=== PATIENT | male | born 1960 | race Caucasian/White ===

== ENCOUNTER → 2017-06-03 | Outpatient (CLI) | payer MEDICARE ==
[~2017-06-03] MED LIST: AMLODIPINE BESY10 MG PO; APAP650 PO; ASPERCREME1 EACH TRANSDERM; ASPIRIN325 PO; ASPIRIN81 M2 PO; COLACE100 MG PO; CYMBALTA60 MG PO; DEXILANT60 MG PO; DOXYCYCLINE 10100 MG PO; DUONEB 2.5-0.5 M3 ML INH; ELIQUIS2.5 MG PO; ENOXAPARIN40 MG/0.1 SUBQ; HYDROCODONE-AP1 EAC6 PO; LOSARTAN-HCTZ1 EAC2 PO; LOSARTAN-HCTZ1 EACH; MELOXICAM7.5 MG; METAMUCIL PAC1 UDPKT PO; METAMUCIL1 EAC1 PO; MILK OF MA2400 MG/10 PO; MOBIC15 MG PO; NICOTINE TRANSD21 M1 TRANSDERM; NORCO 5-325 TA1 EAC1 PO; NORCO 5-325 TA1 EACH PO; OMEPRAZOLE 20 M20 M1 PO; OXYCODONE HCL 55 MG PO; PREDNISONE50 MG PO; VENTOLIN HFA 1818 GM INH; VICODIN ES 7.51 EACH; ZOFRAN4 MG PO
[2017-06-03 11:03] LABS: ABSOLUTE BASOPHILS 0.1 thou/uL (0.0-0.2); ABSOLUTE EOSINOPHILS 0.2 thou/uL (0.0-0.7); ABSOLUTE LYMPHOCYTES 1.6 thou/uL (0.8-5.3); ABSOLUTE MONOCYTES 0.5 thou/uL (0.0-1.2); ABSOLUTE NEUTROPHILS 4.3 thou/uL (1.6-8.1); BASOPHILS 1.5 %; EOSINOPHILS 2.7 %; HEMATOCRIT 46.2 % (42.0-52.0); HEMOGLOBIN 15.7 gm/dL (14.0-18.0); MCH 31.9 pg (26.0-34.0); MCV 93.9 fL (80.0-100.0); MONOCYTES 7.6 %; MPV 8.1 fl. (7.2-11.1); NUCLEATED RBCS 0 /100WBC; PLATELET COUNT* 270 thou/uL (150-400); POLYS 64.2 %; RBC 4.92 mil/uL (4.50-6.00); RDW-CV 13.5 % (10.5-14.5); WBC 6.7 thou/uL (4.0-11.0)
[2017-06-03 11:14] LABS: ALBUMIN 3.7 g/dL (3.4-5.0); ALKALINE PHOSPHATASE 90 U/L (46-116); ANION GAP 8 mmol/L (7-16); BUN 17 mg/dL (7-18); CALCIUM 8.9 mg/dL (8.5-10.1); CHLORIDE 102 mmol/L (98-107); CHOLESTEROL 127 mg/dL (<200); CO2 28 mmol/L (21-32); CREATININE 0.9 mg/dL (0.6-1.3); GLUCOSE 123 mg/dL (70-99); HDL CHOLESTEROL 40 mg/dL (>40); LDL CHOLESTEROL 62 mg/dL (<100); POTASSIUM 4.9 mmol/L (3.5-5.1); SGOT 41 U/L (15-37); SGPT 31 U/L (30-65); SODIUM 138 mmol/L (136-145); TC:HDL 3.2 Ratio (Not establshd); TOTAL BILIRUBIN 0.6 mg/dL (<0.1-1.0); TOTAL PROTEIN 7.5 g/dL (6.4-8.2); TRIGLYCERIDE 127 mg/dL (<150); VLDL 25 mg/dL (<40)
[2017-06-03 11:15] LABS: SERUM ASSESSMENT Clear
[2017-06-03 17:14] LABS: GLYCOHEMOGLOBIN (HGB A1C) 5.3 % (4.8-5.6)
--- NOTE | 2017-06-08 15:58 | EKG ---
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
== END ==
LOC: M.LAB 10:37
PROVIDERS: Nurse Practitioner Family
DX: Z01.818 Encounter for other preprocedural examination (principal); I10 Essential (primary) hypertension; J44.0 Chronic obstructive pulmonary disease with (acute) lower respiratory infection; M15.9 Polyosteoarthritis, unspecified; K21.9 Gastro-esophageal reflux disease without esophagitis; Z87.891 Personal history of nicotine dependence

== ENCOUNTER 2017-06-28 07:05 | Inpatient (IN) | payer MEDICARE ==
[2017-06-08 13:36] LABS: APTT 27.1 Seconds (25.0-31.3); PROTIME 9.9 Seconds (9.20-11.50)
[~2017-06-28] VITALS: Ht 175.3 cm; Wt 124.3 kg
[~2017-06-28 07:05] MED LIST changes: -ASPERCREME1 EACH TRANSDERM; -DUONEB 2.5-0.5 M3 ML INH; -ELIQUIS2.5 MG PO; -METAMUCIL1 EAC1 PO; -PREDNISONE50 MG PO
[2017-06-28 08:00] VITALS: BP 132/81
[2017-06-28 15:00] VITALS: BP 101/75
[2017-06-28 20:00] VITALS: BP 131/79
[2017-06-28 23:48] VITALS: BP 129/80
[2017-06-29 04:19] VITALS: BP 132/88
[2017-06-29 04:26] LABS: HEMATOCRIT 39.7 % (42.0-52.0); HEMOGLOBIN 13.6 gm/dL (14.0-18.0)
[2017-06-29 07:59] VITALS: BP 146/95
[2017-06-29 15:46] VITALS: BP 118/72
[2017-06-29 20:00] VITALS: BP 111/73
[2017-06-29 23:54] VITALS: BP 124/82
[2017-06-30 04:04] VITALS: BP 124/85
[2017-06-30 04:45] LABS: HEMATOCRIT 33.5 % (42.0-52.0); HEMOGLOBIN 11.7 gm/dL (14.0-18.0)
[2017-06-30 08:10] VITALS: BP 107/66
[2017-06-30 16:00] VITALS: BP 101/64
[2017-06-30 20:00] VITALS: BP 128/66
[2017-07-01] VITALS: BP 134/79
[2017-07-01 03:55] VITALS: BP 111/78
[2017-07-01 08:12] VITALS: BP 141/74
[2017-07-01] MEDS ORDERED: DUONEB 2.5-0.5 M3 ML INH (13:58)
[2017-07-01 14:35] VITALS: BP 141/74
[2017-07-01] MEDS ORDERED: OXYCODONE HCL 55 MG PO (14:46)
[2017-07-01] MEDS ORDERED: HYDROCODONE-AP1 EAC6 PO (14:47)
[2017-07-01] MEDS ORDERED: ELIQUIS2.5 MG PO (14:48)
[2017-07-01] MEDS ORDERED: COLACE100 MG PO (14:56)
[2017-07-01] MEDS ORDERED: ASPERCREME1 EACH TRANSDERM (14:57)
[2017-07-01] MEDS ORDERED: METAMUCIL1 EAC1 PO (14:59)
[2017-07-01] MEDS ORDERED: NICOTINE TRANSD21 M1 TRANSDERM (15:01)
[2017-07-01 15:39] VITALS: BP 141/74
--- NOTE | 2017-07-08 07:28 | OP ---
[facility] [address] [place] [address] OPERATIVE REPORT Name: REGGIE MORALES Room: [address] .R.#: [id number] Admission: 06/28/17 Attend Phys: Rachel Turpin Discharge: 07/01/17 Date of : 58 Report #: [id number] THIS REPORT FOR: //name// CC: Filemon Parra DATE OF SERVICE: 06/28/2017 FAMILY PHYSICIAN: Montana Ruiz DO. PREOPERATIVE DIAGNOSIS: Advanced degenerative joint disease, left hip. POSTOPERATIVE DIAGNOSIS: Advanced degenerative joint disease, left hip. OPERATION PERFORMED: Left total hip arthroplasty. SURGEON:, Filemon Tyler DO. CYTOLOGY TECHNOLOGIST: Filemon Giordano DO. SECOND AD WRITER: Bryson Campuzano DO. THIRD AD WRITER: Rob Navarrete DO. ANESTHESIA: General. GROSS PATHOLOGY: There was evidence of marked arthritic changes to the left hip. X-rays in my office revealed complete loss of joint space. There was marked osteophytic lipping. IMPLANTS UTILIZED: Sissy 58 mm acetabular shell, femoral stem size 14, LM body vitamin E elevated rim liner, ceramic femoral head 36 mm, +7.5. DESCRIPTION OF PROCEDURE: The patient has obesity. He has an extremely deformed femoral head, complete loss of articular surface, contractures about the hip. Because of this, a primary secondary assistant county engineer of Dr. Giordano is utilized during the procedure. The patient was brought to the operating room where general anesthetic was administered. Preoperative antibiotics were given. The patient was placed on the operating table in lateral position, left hip up. A Hibiclens scrub and a ChloraPrep, prep were done to the left leg, hip in the usual manner. The patient draped in a sterile manner. Incision was then made approximately 5 inches in length on the lateral aspect of the left hip, was carried down through the skin and subcuticular material by sharp dissection. Tensor fascia jacob split in line with the incision. Gluteus medius and minimus were transected at the musculotendinous junction. An [place] [address] OPERATIVE REPORT Name: REGGIE MORALES Room: [address] [facility]#: [id number] Admission: 06/28/17 Attend Phys: Rachel Turpin Discharge: 07/01/17 Date of : 58 Report #: [id number] was performed. There were marked osteophytes noted about the acetabulum. They are removed. The acetabulum was then reamed successively up to size 57 as it was felt that the 58 would be the final size. The trial 56 was placed into position, slightly loose, which confirmed the 58 would be a good fit. The acetabular shell was impacted into position. It was noted to seat down nicely. It was further secured with screws x 2. The trial liner was placed into position. Attention was turned to the femur. Utilizing the box osteotome, the medial portion of the greater trochanter is removed. The T reamer was placed down the shaft, and the trochanteric reamer was also utilized. The femur was then reamed up to a broached to size 14 mm. There is some space at the lesser trochanter, which would confirm that the LM body would be a better fit. It is then bagged down to a size 13 broach LM, and then, the next 14 LM broach was utilized, which was noted to fit nicely. Trial reduction is performed. X-ray was taken, which revealed the components are in good position. The trial components are removed. The final acetabular shell was impacted into position and noted to be stable. The final femoral stem was impacted into position. It fit well. The femoral head was impacted onto the femoral stem, noted to be stable. The hip was then reduced. Components fit well. The hip was taken through range of motion, and it is stable. The remaining capsule was closed with a #1 Vicryl suture, gluteus medius and minimus are reattached with a 5 Ti-Cron. Tensor fascia jacob closed with #1 Vicryl, subcutaneous 2-0 Vicryl and verenice on the skin. Estimated blood loss approximately 250 mL. The wound was thoroughly irrigated throughout the entire procedure. Needle and sponge count reported as correct and hemostasis maintained during surgery. The area at time of closure was also anesthetized with Marcaine 0.5% plain. <ELECTRONICALLY SIGNED> By: Filemon Tyler DO 07/08/17 0728 1052 [id number] Tyler DO /nt
== END 2017-07-01 15:39 | DRG 470 ==
LOC: M.ORTHSURG 07:05 → M.TBA 07:05 → M.ORTHSURG 08:28
PROVIDERS: Orthopaedic Surgery; ADMIT Internal Medicine
PROC: 0SRB03A Replacement of Left Hip Joint with Ceramic Synthetic Substitute, Uncemented, Open Approach (ICD-10-PCS; principal; 2017-06-28)
DX: M16.12 Unilateral primary osteoarthritis, left hip (principal); I10 Essential (primary) hypertension; F32.9 Major depressive disorder, single episode, unspecified; J44.9 Chronic obstructive pulmonary disease, unspecified; K21.9 Gastro-esophageal reflux disease without esophagitis; F17.210 Nicotine dependence, cigarettes, uncomplicated; Z96.641 Presence of right artificial hip joint; Z79.899 Other long term (current) drug therapy; Z91.030 Bee allergy status

== ENCOUNTER 2017-09-25 02:51 | Emergency (ER) | payer MEDICARE ==
[~2017-09-25] VITALS: Ht 175.3 cm; Wt 129.0 kg
[~2017-09-25 02:51] MED LIST changes: +ASPERCREME1 EACH TRANSDERM; +DUONEB 2.5-0.5 M3 ML INH; +ELIQUIS2.5 MG PO; +METAMUCIL1 EAC1 PO
[2017-09-25 03:14] LABS: ABSOLUTE BASOPHILS 0.1 thou/uL (0.0-0.2); ABSOLUTE EOSINOPHILS 0.2 thou/uL (0.0-0.7); ABSOLUTE LYMPHOCYTES 2.3 thou/uL (0.8-5.3); ABSOLUTE MONOCYTES 0.7 thou/uL (0.0-1.2); ABSOLUTE NEUTROPHILS 5.1 thou/uL (1.6-8.1); BASOPHILS 0.7 %; EOSINOPHILS 2.2 %; HEMATOCRIT 43.3 % (42.0-52.0); HEMOGLOBIN 14.8 gm/dL (14.0-18.0); LYMPHOCYTES 27.4 %; MCH 31.3 pg (26.0-34.0); MCHC 34.2 g/dL (28.0-37.0); MCV 91.5 fL (80.0-100.0); MPV 7.9 fl. (7.2-11.1); NUCLEATED RBCS 0 /100WBC; PLATELET COUNT* 295 thou/uL (150-400); POLYS 61.7 %; RBC 4.73 mil/uL (4.50-6.00); WBC 8.2 thou/uL (4.0-11.0)
[2017-09-25 03:23] LABS: ANION GAP 14 mmol/L (7-16); BUN 16 mg/dL (7-18); CALCIUM 8.3 mg/dL (8.5-10.1); CHLORIDE 102 mmol/L (98-107); CO2 22 mmol/L (21-32); CREATININE 0.8 mg/dL (0.6-1.3); GLUCOSE 115 mg/dL (70-99); POTASSIUM 3.5 mmol/L (3.5-5.1); SODIUM 138 mmol/L (136-145)
[2017-09-25 03:30] LABS: ALBUMIN 3.4 g/dL (3.4-5.0); ALKALINE PHOSPHATASE 87 U/L (46-116); SGOT 23 U/L (15-37); SGPT 26 U/L (30-65); TOTAL BILIRUBIN 0.2 mg/dL (<0.1-1.0); TOTAL PROTEIN 7.4 g/dL (6.4-8.2); TROPONIN-I LEVEL <0.06 ng/mL (<0.06)
[2017-09-25] MEDS ORDERED: PREDNISONE50 MG PO (03:39)
[2017-09-25 04:11] VITALS: BP 116/66
--- NOTE | 2017-09-25 12:06 | EKG ---
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 Order Dispatcher Chief: Sandrita CONNOLLY : 1960 Requested By: Ángel Louis Order Number: [id number] MD: Jan Wilson Measurements Intervals [place] Rate: 85 P: 57 [place]: 197 QRS: 6 QRSD: 90 T: 38 QT: 352 QTc: 419 Interpretive Statements Sinus rhythm Low voltage, precordial leads Compared to ECG 06/08/2017 13:31:42 No significant changes Electronically Signed On 09-25-2017 12:06:35 CDT by Jan Wilson [email or web address] <ELECTRONICALLY SIGNED> By: Jan Wilson MD, [facility] 09/25/17 1206 Jan Wilson MD, FAC /EPI
== END 2017-09-25 04:12 | disposition home or self-care (01) ==
LOC: M.ERS 02:51
PROVIDERS: Emergency Medicine Emergency Medical Services
DX: J44.1 Chronic obstructive pulmonary disease with (acute) exacerbation (principal); F10.129 Alcohol abuse with intoxication, unspecified; I10 Essential (primary) hypertension; F32.9 Major depressive disorder, single episode, unspecified; K21.9 Gastro-esophageal reflux disease without esophagitis; M19.90 Unspecified osteoarthritis, unspecified site; Z96.641 Presence of right artificial hip joint; Z91.030 Bee allergy status

== ENCOUNTER 2017-11-05 01:05 | Emergency (ER) | payer MEDICARE ==
[~2017-11-05] VITALS: Ht 177.8 cm; Wt 128.4 kg
[~2017-11-05 01:05] MED LIST changes: +PREDNISONE50 MG PO
[2017-11-05 01:31] LABS: ABSOLUTE BASOPHILS 0.1 thou/uL (0.0-0.2); ABSOLUTE EOSINOPHILS 0.1 thou/uL (0.0-0.7); ABSOLUTE LYMPHOCYTES 2.5 thou/uL (0.8-5.3); ABSOLUTE MONOCYTES 0.6 thou/uL (0.0-1.2); ABSOLUTE NEUTROPHILS 5.5 thou/uL (1.6-8.1); BASOPHILS 1.2 %; EOSINOPHILS 1.4 %; HEMATOCRIT 44.5 % (42.0-52.0); LYMPHOCYTES 28.4 %; MCH 31.2 pg (26.0-34.0); MCHC 33.7 g/dL (28.0-37.0); MCV 92.5 fL (80.0-100.0); MONOCYTES 7.1 %; MPV 8.2 fl. (7.2-11.1); NUCLEATED RBCS 0 /100WBC; PLATELET COUNT* 273 thou/uL (150-400); POLYS 61.9 %; RBC 4.82 mil/uL (4.50-6.00); WBC 8.9 thou/uL (4.0-11.0)
[2017-11-05 01:33] LABS: CALCIUM 7.9 mg/dL (8.5-10.1); CREATININE 0.9 mg/dL (0.6-1.3); POTASSIUM 3.9 mmol/L (3.5-5.1)
[2017-11-05 01:36] LABS: APTT 27.3 Seconds (25.0-31.3); PROTIME 9.9 Seconds (9.20-11.50)
[2017-11-05 01:38] LABS: ALBUMIN 3.4 g/dL (3.4-5.0); TOTAL BILIRUBIN 0.1 mg/dL (<0.1-1.0)
[2017-11-05 02:21] LABS: URINE BILIRUBIN NEGATIVE (Negative); URINE BLOOD NEGATIVE (Negative); URINE CLARITY CLEAR; URINE COLOR YELLOW; URINE GLUCOSE-RANDOM NEGATIVE (Negative); URINE KETONES NEGATIVE (Negative); URINE LEUKOCYTES-REFLEX NEGATIVE (Negative); URINE NITRITE-REFLEX NEGATIVE (Negative); URINE PROTEIN NEGATIVE (Negative); URINE UROBILINOGEN 0.2 E.U./dl (0.2-1.0)
[2017-11-05 02:44] VITALS: BP 116/85
== END 2017-11-05 02:45 | disposition home or self-care (01) ==
LOC: M.ERS 01:05
PROVIDERS: Family Medicine
DX: F10.129 Alcohol abuse with intoxication, unspecified (principal); I10 Essential (primary) hypertension; K21.9 Gastro-esophageal reflux disease without esophagitis; M19.90 Unspecified osteoarthritis, unspecified site; Y90.6 Blood alcohol level of 120-199 mg/100 ml; Z91.030 Bee allergy status; W18.31XA Fall on same level due to stepping on an object, initial encounter; Y93.89 Activity, other specified; Y92.89 Other specified places as the place of occurrence of the external cause; Y99.8 Other external cause status

== ENCOUNTER 2017-11-10 23:48 | Emergency (ER) | payer MEDICARE ==
[~2017-11-10] VITALS: Ht 180.3 cm; Wt 131.5 kg
[2017-11-11 00:09] LABS: ABSOLUTE BASOPHILS 0.1 thou/uL (0.0-0.2); ABSOLUTE EOSINOPHILS 0.1 thou/uL (0.0-0.7); ABSOLUTE LYMPHOCYTES 2.6 thou/uL (0.8-5.3); ABSOLUTE MONOCYTES 0.7 thou/uL (0.0-1.2); ABSOLUTE NEUTROPHILS 6.2 thou/uL (1.6-8.1); BASOPHILS 1.3 %; EOSINOPHILS 1.4 %; HEMATOCRIT 44.5 % (42.0-52.0); HEMOGLOBIN 15.4 gm/dL (14.0-18.0); LYMPHOCYTES 26.5 %; MCH 31.7 pg (26.0-34.0); MCHC 34.5 g/dL (28.0-37.0); MCV 91.9 fL (80.0-100.0); MONOCYTES 7.6 %; MPV 8.1 fl. (7.2-11.1); NUCLEATED RBCS 0 /100WBC; PLATELET COUNT* 264 thou/uL (150-400); POLYS 63.2 %; RBC 4.84 mil/uL (4.50-6.00); RDW-CV 14.1 % (10.5-14.5); WBC 9.8 thou/uL (4.0-11.0)
[2017-11-11 00:24] LABS: ANION GAP 10 mmol/L (7-16); BUN 17 mg/dL (7-18); CALCIUM 8.2 mg/dL (8.5-10.1); CHLORIDE 98 mmol/L (98-107); CO2 24 mmol/L (21-32); CREATININE 0.8 mg/dL (0.6-1.3); GLUCOSE 117 mg/dL (70-99); POTASSIUM 3.4 mmol/L (3.5-5.1); SODIUM 132 mmol/L (136-145)
[2017-11-11 00:30] LABS: ALBUMIN 3.7 g/dL (3.4-5.0); ALKALINE PHOSPHATASE 84 U/L (46-116); LIPASE 131 U/L (73-393); MAGNESIUM 2.2 mg/dL (1.8-2.4); SGOT 25 U/L (15-37); SGPT 36 U/L (30-65); TOTAL BILIRUBIN 0.3 mg/dL (<0.1-1.0); TOTAL PROTEIN 7.5 g/dL (6.4-8.2); TROPONIN-I LEVEL <0.06 ng/mL (<0.06)
[2017-11-11 03:35] VITALS: BP 146/100
--- NOTE | 2017-11-11 10:46 | EKG ---
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 11/11/17 1045 0016 0016 Jan Wilson MD, [facility] /EPI
== END 2017-11-11 03:35 | disposition home or self-care (01) ==
LOC: M.ERS 23:48
PROVIDERS: Emergency Medicine
DX: F10.129 Alcohol abuse with intoxication, unspecified (principal); Y90.8 Blood alcohol level of 240 mg/100 ml or more; I10 Essential (primary) hypertension; F32.9 Major depressive disorder, single episode, unspecified; K21.9 Gastro-esophageal reflux disease without esophagitis; M19.90 Unspecified osteoarthritis, unspecified site; Z98.890 Other specified postprocedural states; Z91.030 Bee allergy status

== ENCOUNTER 2018-03-11 15:32 | Emergency (ER) | payer MEDICARE ==
[~2018-03-11] VITALS: Ht 175.3 cm; Wt 120.2 kg
[2018-03-11] MEDS ORDERED: CYMBALTA30 MG PO (15:36)
[2018-03-11] MEDS ORDERED: MOBIC15 MG PO (15:40)
[2018-03-11] MEDS ORDERED: KEFLEX500 M1 PO (16:50)
[2018-03-11 17:00] VITALS: BP 177/106
== END 2018-03-11 17:24 | disposition home or self-care (01) ==
LOC: M.ERS 15:32
DX: S61.412A Laceration without foreign body of left hand, initial encounter (principal); K21.9 Gastro-esophageal reflux disease without esophagitis; I10 Essential (primary) hypertension; F32.9 Major depressive disorder, single episode, unspecified; M19.90 Unspecified osteoarthritis, unspecified site; F17.210 Nicotine dependence, cigarettes, uncomplicated; Z96.641 Presence of right artificial hip joint; Z91.030 Bee allergy status; W26.0XXA Contact with knife, initial encounter; Y93.89 Activity, other specified; Y92.89 Other specified places as the place of occurrence of the external cause; Y99.8 Other external cause status

== ENCOUNTER 2020-02-14 00:12 | Emergency (ER) | payer MEDICARE ==
[~2020-02-14] VITALS: Ht 190.5 cm; Wt 144.7 kg
[~2020-02-14 00:12] MED LIST changes: +CYMBALTA30 MG PO; +KEFLEX500 M1 PO
[2020-02-14 00:34] LABS: ABSOLUTE BASOPHILS 0.1 thou/uL (0.0-0.2); ABSOLUTE EOSINOPHILS 0.2 thou/uL (0.0-0.7); ABSOLUTE LYMPHOCYTES 2.4 thou/uL (0.8-5.3); ABSOLUTE MONOCYTES 0.8 thou/uL (0.0-1.2); ABSOLUTE NEUTROPHILS 5.7 thou/uL (1.6-8.1); HEMATOCRIT 43.4 % (42.0-52.0); HEMOGLOBIN 14.7 gm/dL (14.0-18.0); MCH 31.5 pg (26.0-34.0); MCHC 33.9 g/dL (28.0-37.0); MCV 92.8 fL (80.0-100.0); MONOCYTES 8.4 %; NUCLEATED RBCS 0 /100WBC; PLATELET COUNT* 270 thou/uL (150-400); POLYS 62.6 %; RBC 4.67 mil/uL (4.50-6.00); WBC 9.1 thou/uL (4.0-11.0)
[2020-02-14 00:45] LABS: CALCIUM 8.2 mg/dL (8.5-10.1); CREATININE 0.9 mg/dL (0.6-1.3); POTASSIUM 3.6 mmol/L (3.5-5.1)
[2020-02-14 00:46] LABS: INR 0.9
[2020-02-14 00:49] LABS: ALBUMIN 3.5 g/dL (3.4-5.0); MAGNESIUM 2.3 mg/dL (1.8-2.4); TOTAL BILIRUBIN 0.2 mg/dL (<0.1-1.0); TOTAL PROTEIN 7.2 g/dL (6.4-8.2)
[2020-02-14 09:38] VITALS: BP 117/76
--- NOTE | 2020-02-14 10:07 | EKG ---
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 : 1960 Requested By: Laurel Huertas Order Number: [id number] MD: Nathan Villa Measurements Intervals [place] Rate: 80 P: 65 [place]: 207 QRS: 17 QRSD: 83 T: 50 QT: 379 QTc: 438 Interpretive Statements Sinus rhythm Borderline prolonged [place] interval Low voltage, precordial leads Baseline wander in lead(s) I,III,aVR,aVL Compared to ECG 11/11/2017 00:16:51 ST (T wave) deviation no longer present Electronically Signed On 02-14-2020 10:07:09 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
== END 2020-02-14 09:39 | disposition home or self-care (01) ==
LOC: M.ERS 00:12
PROVIDERS: Emergency Medicine
DX: F10.129 Alcohol abuse with intoxication, unspecified (principal); Y90.8 Blood alcohol level of 240 mg/100 ml or more; Z20.828 Contact with and (suspected) exposure to other viral communicable diseases; K21.9 Gastro-esophageal reflux disease without esophagitis; M19.90 Unspecified osteoarthritis, unspecified site; I10 Essential (primary) hypertension; M25.541 Pain in joints of right hand; Z91.030 Bee allergy status